=== PATIENT | male | born 1985 | race Two or more races ===

== ENCOUNTER 2022-02-08 10:01 | Outpatient (CLI) | payer BC, SELFPAY ==
[2022-02-08 14:11] LABS: Albumin* 4.5 g/dL (3.3-5.0)
[2022-02-08 14:13] LABS: Amylase* 97 U/L (18-89)
[2022-02-08 14:14] LABS: Alanine Aminotransferase* 42 U/L (4-50); Alkaline Phosphatase* 93 U/L (40-150); Aspartate Amino Transferase* 39 U/L (12-35); Bilirubin Direct* 0.4 mg/dL (0.0-0.5); Bilirubin Total* 0.8 mg/dL (0.1-1.5); Total Protein* 7.3 g/dL (6.0-8.3)
== END 2022-02-08 10:02 | disposition home or self-care (01) ==
PROVIDERS: Visit Provider Nurse Practitioner Family
DX: Z00.00 Encounter for general adult medical examination without abnormal findings (principal); R10.9 Unspecified abdominal pain; M54.50 Low back pain, unspecified; R21 Rash and other nonspecific skin eruption
CPT/HCPCS: 80076; 82150

== ENCOUNTER 2024-04-10 20:01 | Emergency (ER) | payer BC, SELFPAY ==
[2024-04-10 20:06] VITALS: BP 160/108; PULSE 116; RESP 16; TEMP 36.2; O2SAT 97; BMI 33.7
--- NOTE | 2024-04-10 20:23 | CRLHL7_ITS ---
For Patients: As a result of the Cures Act, medical imaging exams and procedure reports are released immediately into your electronic medical record. You may view this report before your referring provider. If you have questions, please contact your health care provider. Indication: Inhaled Vicks in sauna, shortness of breath Technique: Two views of the chest Comparison: None Findings/Impression: No acute cardiopulmonary process detected. Dictated by Justin Bess MD @ 04/10/2024 9:19:33 PM (Electronically Signed)
--- NOTE | 2024-04-10 20:25 | ED_ITS ---
HPI - General Adult General Date Seen: 04/10/24 Chief complaint: Nausea/Vomiting Stated complaint: heated sauna, vicks in there, concerns of poisenin Time Seen by Provider: 04/10/24 20:02 Source: patient Mode of arrival: ambulatory Limitations: no limitations History of Present Illness HPI narrative: Patient is a 38-year-old male here for evaluation of some dizziness and shortness of breath after using a home sauna. He says he bought off of [employer], it is basically a little zip up hut and he usually puts a newton of boiling water in there, he has always tolerated it well. Today he put a Vicks vapo pad, generally used for humidifiers or vaporizers, in the boiling water. He sat in the sauna for about 10 minutes, but then started to feel short of breath and dizzy which he is unaccustomed to feeling. Symptoms persisted once he left the sauna and he decided he should probably get it checked out. He does not have chest pain. No recent illness, fevers or cough. No syncope. General health is good. He denies tobacco use, vaping, marijuana. Related Data Home Medications ?Medication ?Instructions ?Recorded ?Confirmed No Known Home Medications 04/10/24 04/10/24 Allergies Allergy/AdvReac Type Severity Reaction Status Date / Time No Known Drug Allergies Allergy Verified 01/20/24 16:29 Review of Systems Status of ROS: Reports: 10 or more systems reviewed and unremarkable except as noted in History and below [facility] Medical History Low back pain ?M54.50 - Low back pain, unspecified (ICD-10) Rash ?R21 - Rash and other nonspecific skin eruption (ICD-10) Abdominal pain ?R10.9 - Unspecified abdominal pain (ICD-10) Social History Smoking Status: Never smoker Do you use any of these nicotine containing products: None Second hand tobacco smoke exposure: No How often do you have a drink containing alcohol: never How often do you have six or more drinks on one occasion: Never AUDIT-C Alcohol total score: 0 Non-prescribed substance use: denies use service: No Exam Narrative: Exam Narrative: Vital signs as noted above. In general, an alert, well-appearing patient. Breathing easily. Head: Normocephalic, atraumatic. Eyes: Pupils are equal reactive. Extraocular movements are full. Conjunctivae are normal. ENT: Mucous membranes are moist. Throat is normal. Neck: Supple without lymphadenopathy. Heart: Noted to be tachycardic on arrival, rate sounds normal at the time my exam. No murmur. Lungs: He has some scattered coarse crackles, no increased work of breathing, no wheezing. Extremities: Well perfused. No edema. No calf tenderness. Pulses intact. Neurologic: Patient is alert and oriented to person and place. Speech is fluent. Face is symmetric. Moves all extremities equally. Affect: Normal. Skin: Warm and dry. Well perfused. Const: Vital Signs, click to edit/add: Vital Signs - 24 hr 04/10/24 20:06 04/10/24 21:09 Temperature 97.2 F L 98.3 F Pulse Rate [Pulse Oximeter] 116 H 90 Respiratory Rate 16 18 Blood Pressure [Ri ght Upper Arm] 160/108 H 147/103 H Pulse Oximetry 97 98 Oxygen Delivery Me thod Room Air Room Air Documenting provider has reviewed patient's vital signs: yes Course Course ED Course: O2 sats are normal, he does have few adventitious sounds in his lungs. Will get a chest x-ray to look for any evidence of pneumonitis, reading about the vapor rub pad online, which contains eucalyptus oil, menthol, glycol, it looks as if exposure to high concentrations of the menthol could potentially result in a chemical pneumonitis. Unclear how much of this he would of been exposed to based on this 1 pad and water. He is feeling improved with time. Repeat vitals show blood pressure 147/103, pulse of 90. O2 sats are 98% on room air. Chest x-ray by my review is normal. Final radiology read negative. Findings/Impression: No acute cardiopulmonary process detected. Dictated by Justin Bess MD @ 04/10/2024 9:19:33 PM Overall, I think this is a low risk exposure, I think it is reasonable for him to go home. Anticipate he will continue to feel well but if for some reason he is having more difficulty with breathing etcetera return any time Vital Signs Vital signs: Initial Vital Signs Temperature 97.2 F L 04/10/24 20:06 Temperature Source Temporal Artery Scan 04/10/24 20:06 Pulse Rate 116 H 04/10/24 20:06 Respiratory Rate 16 04/10/24 20:06 Blood Pressure 160/108 H 04/10/24 20:06 Blood Pressure Mean 125 H 04/10/24 20:06 Blood Pressure Position Sitting 04/10/24 20:06 Pulse Oximetry 97 04/10/24 20:06 Oxygen Delivery Method Room Air 04/10/24 20:06 Vital Signs Temperature 97.2 F L 04/10/24 20:06 Pulse Rate 116 H 04/10/24 20:06 Respiratory Rate 16 04/10/24 20:06 Blood Pressure 160/108 H 04/10/24 20:06 Pulse Oximetry 97 04/10/24 20:06 Oxygen Delivery Method Room Air 04/10/24 20:06 Temperature 98.3 F 04/10/24 21:09 Pulse Rate 90 04/10/24 21:09 Respiratory Rate 18 04/10/24 21:09 Blood Pressure 147/103 H 04/10/24 21:09 Pulse Oximetry 98 04/10/24 21:09 Oxygen Delivery Method Room Air 04/10/24 21:09 Discharge Plan Discharge Clinical Impression: Exposure to chemical compounds Patient Disposition: Home, Self-Care Condition: Improved Additional Instructions: I would stick with plain water in the sauna going forward. If for some reason you are feeling worse rather than better, back to the ER at any time. Prescriptions: No Action No Known Home Medications Follow Up/Referrals: Provider,Not a Local [Primary Care Provider] - Stand Alone Forms: [facility] Info Instructions
[2024-04-10 21:09] VITALS: BP 147/103; PULSE 90; RESP 18; TEMP 36.8; O2SAT 98
== END 2024-04-10 21:42 | disposition home or self-care (01) ==
PROVIDERS: Emergency Provider Emergency Medicine
DX: R42 Dizziness and giddiness (principal); T75.89XA Other specified effects of external causes, initial encounter
CPT/HCPCS: 71046; 99283; 99284

== ENCOUNTER 2024-08-26 16:32 | Outpatient (CLI) | payer BC, SELFPAY | END 2024-08-26 16:33 | disposition home or self-care (01) | LOC: NFLDUCREF 16:32 | PROVIDERS: Visit Provider Nurse Practitioner Family | DX: J02.9 Acute pharyngitis, unspecified (principal) | CPT/HCPCS: 87070 ==